=== PATIENT | female | born 1990 | race Hispanic/Latino ===

== ENCOUNTER 2016-08-01 18:57 | Emergency (ER) | payer OTHER ==
[2016-08-01 19:08] VITALS: BP 135/86; PULSE 90; RESP 18; TEMP 98.3; O2SAT 100
[2016-08-01] MEDS ORDERED: Sodium Chloride 0.9% 1,000 ML IV SCH (19:30)
--- NOTE | 2016-08-01 19:33 | ED PDOC ---
HPI: Abdomen Time Seen by Provider: 08/01/16 19:22 Chief Complaint (Nursing): Abdominal Pain Additional Complaint(s): 26yo F with no PMHx c/o abd pain. generalized abd pain and diarrhea x2 days, a/ w weakness x3 days d/t limited PO intake. a/w nausea. Diarrhea every time PO tried, last episode today. Last travel to [place], returned x6 days ago, had EtOH while traveling in [place], no other new foods noticed. Denies fever, chills, vomiting. LMP 07/31/16, regular. Denies prior abd surgeries. Past Medical History Reviewed: Historical Data, Vital Signs Vital Signs: Last Vital Signs Temp 98.3 F 08/01/16 19:04 Pulse 90 08/01/16 19:04 Resp 18 08/01/16 19:04 BP 135/86 08/01/16 19:04 Pulse Ox 100 08/01/16 19:37 - Medical History PMH: No Chronic Diseases - Surgical History Surgical History: Tonsillectomy - Family History Family History: States: No Known Family Hx - Social History Current smoker - smoking cessation education provided: No Alcohol: None Drugs: Denies - Home Medications Home Medications: Ambulatory Orders Medication Instructions Recorded Dicyclomine [Bentyl] 20 mg PO Q12 PRN #20 tab 08/01/16 Ondansetron ODT [Zofran ODT] 4 mg PO Q6 PRN #16 odt 08/01/16 - Allergies Allergies/Adverse Reactions: Allergies Allergy/AdvReac Type Severity Reaction Status Date / Time No Known Allergies Allergy Verified 08/01/16 19:04 Review of Systems ROS Statement: Except As Marked, All Systems Reviewed And Found Negative Constitutional: Negative for: Fever, Chills Cardiovascular: Negative for: Chest Pain Respiratory: Negative for: Shortness of Breath Gastrointestinal: Positive for: Nausea, Abdominal Pain, Diarrhea. Negative for : Vomiting Genitourinary Female: Negative for: Dysuria Musculoskeletal: Negative for: Back Pain Skin: Negative for: Rash Neurological: Positive for: Weakness. Negative for: Headache Physical Exam - Physical Exam Appears: Positive for: Non-toxic, No Acute Distress Head Exam: Positive for: ATRAUMATIC, NORMAL INSPECTION Skin: Positive for: Warm, Dry Eye Exam: Positive for: Normal appearance. Negative for: Scleral icterus Neck: Positive for: Normal, Supple Cardiovascular/Chest: Positive for: Regular Rate, Rhythm Respiratory: Positive for: Normal Breath Sounds Gastrointestinal/Abdominal: Positive for: Bowel Sounds (hyperactive), Soft, Tenderness (generalized, greatest in BLQ). Negative for: Distended, Guarding Back: Positive for: Normal Inspection Extremity: Negative for: Tenderness, Pedal Edema Neurologic/Psych: Positive for: Alert, Oriented - Laboratory Results Result Diagrams: 08/01/16 19:50 08/01/16 19:50 - ECG O2 Sat by Pulse Oximetry: 100 Medical Decision Making Medical Decision Makin DDx gastroenteritis, pancreatitis, , colitis CBC, CMP, amylase, lipase bentyl 20mg PO NS 1L bolus zofran 4mg IV reassessment 2100 no leukocytosis, LFTs within range amylase/lipase WNL abd pain improved no diarrhea, no nausea d/c with bentyl and zofran FU PMD Dr. Freitas Disposition - Clinical Impression Clinical Impression: Gastroenteritis - Disposition Disposition: Routine/Home Disposition Time: 21:06 Condition: [id number] Prescriptions: Dicyclomine [Bentyl] 20 mg PO Q12 PRN #20 tab PRN Reason: abdominal pain Ondansetron ODT [Zofran ODT] 4 mg PO Q6 PRN #16 odt PRN Reason: Nausea/Vomiting Instructions: Gastroenteritis (ED)
[2016-08-01 19:54] LABS: BASO % 0.6 % (0.0-2.0); EOS % 0.8 % (0.0-4.0); HEMATOCRIT 38.4 % (34.0-47.0); LYMPH # 0.8 K/uL (1.0-4.3); LYMPH % 25.9 % (20.0-40.0); MEAN CELL VOLUME 85.3 fl (81.0-99.0); MEAN CORPUSCULAR HEMOGLOBIN 30.3 pg (27.0-31.0); MEAN CORPUSCULAR HGB CONC 35.5 g/dL (33.0-37.0); MEAN PLATELET VOLUME 7.3 fl (7.2-11.7); MONO # 0.5 K/uL (0.0-0.8); MONO % 16.4 % (0.0-10.0); NEUT # 1.8 K/uL (1.8-7.0); NEUT % 56.3 % (50.0-75.0); NRBC % 0.2 % (0.0-0.0); PLATELET COUNT 205 K/uL (130-400); RED CELL DISTRIBUTION WIDTH 13.3 % (11.5-14.5); WHITE BLOOD COUNT 3.2 K/uL (4.8-10.8)
[2016-08-01 20:03] LABS: ALB/GLOB RATIO 1.7 (1.0-2.1); ALKALINE PHOSPHATASE 68 U/L (38-126); ALT/SGPT 38 U/L (9-52); AMYLASE 83 U/L (30-110); AST/SGOT 37 U/L (14-36); BILIRUBIN,TOTAL 0.8 mg/dl (0.2-1.3); BLOOD UREA NITROGEN 6 mg/dl (7-17); CALCIUM 9.3 mg/dL (8.4-10.2); CARBON DIOXIDE 25 mmol/L (22-30); CHLORIDE 105 mmol/L (98-107); GFR AFRICAN-AMERICAN > 60; GLUCOSE,RANDOM 82 mg/dL (65-105); LIPASE 105 U/L (23-300); POTASSIUM 3.8 MMOL/L (3.6-5.0); SODIUM 142 mmol/l (132-148); TOTAL PROTEIN 7.5 G/DL (6.3-8.2)
[2016-08-01 21:12] LABS: NEUTROPHIL 71 % (42-75); REACTIVE LYMPHOCYTES 3 % (0-0); TOTAL CELLS COUNTED 100
[2016-08-01 21:13] LABS: GIANT PLATELETS PRESENT; LARGE PLATELETS PRESENT
== END 2016-08-01 21:30 | disposition home or self-care (01) ==
LOC: H.ER 18:57
DX: K52.9 Noninfective gastroenteritis and colitis, unspecified (principal); R11.0 Nausea; R19.7 Diarrhea, unspecified